=== PATIENT | male | born 1965 | race Caucasian/White ===

== ENCOUNTER 2018-03-03 06:04 | Emergency (ER) | payer OTHER ==
[~2018-03-03] VITALS: Ht 185.4 cm; Wt 78.5 kg
[2018-03-03 06:19] VITALS: Ht 185.4 cm; Wt 78.5 kg
[2018-03-03 07:52] LABS: BASOPHIL % 0.7 % (0-2); PLATELET COUNT 339 x10^3mcL (130-400); RED CELL DISTRIBUTION WIDTH 13.4 % (11.5-14.5)
[2018-03-03 08:03] LABS: CALCIUM 8.9 mg/dL (8.5-10.1); CARBON DIOXIDE 27.1 mmol/L (21-32); CHLORIDE SERUM 105 mmol/L (98-107); CREATININE SERUM 0.9 mg/dL (0.7-1.3); GFR1 > 60 mL/min; GLUCOSE SERUM 102 mg/dL (74-106); POTASSIUM SERUM 3.9 mmol/L (3.5-5.1); SODIUM SERUM 143 mmol/L (136-145)
[2018-03-03 08:07] LABS: ALBUMIN 3.9 g/dL (3.4-5.0); ALKALINE PHOSPHATASE 84 U/L (46-116); ALT/SGPT 22 U/L (16-63); AMYLASE 60 U/L (25-115); AST/SGOT 11 U/L (15-37); BILIRUBIN TOTAL 0.19 mg/dL (0.20-1.00); CHOLESTEROL 181 mg/dL (<200); LIPASE 109 IU/L (73-393); TOTAL PROTEIN, SERUM 7.1 g/dL (6.4-8.2)
[2018-03-03 08:17] LABS: HDL CHOLESTEROL 62 mg/dL (40-60)
[2018-03-03 10:03] LABS: microscopic required? YES; urine erythrocyte TRACE (NEGATIVE)
[2018-03-03 10:36] LABS: AMPHETAMINE QUAL UR POSITIVE (See below)
[2018-03-03 12:07] VITALS: BP 149/80
== END 2018-03-03 12:07 | disposition home or self-care (01) ==
LOC: ED 06:04
PROVIDERS: Emergency Medicine
DX: M51.35 Other intervertebral disc degeneration, thoracolumbar region (principal); M54.6 Pain in thoracic spine; F17.210 Nicotine dependence, cigarettes, uncomplicated; F12.90 Cannabis use, unspecified, uncomplicated; F15.20 Other stimulant dependence, uncomplicated; Z88.2 Allergy status to sulfonamides; Z88.1 Allergy status to other antibiotic agents; Z71.6 Tobacco abuse counseling
CPT/HCPCS: 83880; 99406; G0480; J1885; J3010; Q0092; Q9967